=== PATIENT | male | born 1935 | race Caucasian/White ===

== ENCOUNTER 2021-06-30 14:08 | Emergency (ER) | payer OTHER ==
[~2021-06-30] VITALS: Ht 177.8 cm; Wt 77.7 kg
[2021-06-30 15:23] VITALS: BP 117/82
== END 2021-06-30 15:24 | disposition home or self-care (01) ==
LOC: EMS 14:13
DX: Z04.1 Encounter for examination and observation following transport accident (principal); I48.91 Unspecified atrial fibrillation; V49.49XA Driver injured in collision with other motor vehicles in traffic accident, initial encounter; Y93.89 Activity, other specified; Y92.89 Other specified places as the place of occurrence of the external cause; Y99.8 Other external cause status
CPT/HCPCS: 99283